=== PATIENT | male | born 1960 | race Caucasian/White ===

== ENCOUNTER 2023-02-10 02:42 | Emergency (ER) | payer MEDICAID, SELFPAY ==
[2023-02-10 02:43] VITALS: BP 150/88; PULSE 101; RESP 18; TEMP 37.1; O2SAT 97; BMI 30.6
[2023-02-10 03:06] LABS: Bacteria 0 SEEN /hpf (None Seen); Mucous, Urine 0 SEEN /hpf (<or=2+); Red Blood Cells-Urine 0 SEEN /hpf (0-5); Squamous Epithelial Cells - UA 0 SEEN /hpf (0-5); White Blood Cells 0 SEEN /hpf (0-5)
[2023-02-10 03:07] LABS: Color, Urine Yellow (Yellow); Glucose, Dipstick Normal (Normal); Ketone-Dipstick Negative (Negative); Leukocyte Esterase-Dipstick Negative /ul (Negative); Nitrite-Dipstick Negative (Negative); Occult Blood-Urine Negative /ul (Negative); Protein-Dipstick Negative (Negative); Urine Bilirubin Dipstick Negative (Negative); Urine Clarity Clear (Clear); Urine Urobilinogen Normal (Normal)
[2023-02-10 03:40] LABS: Anion Gap 3 (5-15); BUN 16 mg/dL (7-18); BUN/Creat Ratio 16.7 RATIO (10-20); Calcium,Total 8.2 mg/dL (8.5-10.1); Chloride 114 mmol/L (98-107); Creatinine, Serum 0.96 mg/dL (0.70-1.30); EST Glomerular Filtration Rate 85 mL/min (>60); Est Glom Filt Rate - Afr Amer 103 mL/min (>60); Estimated Creatinine Clearance 79.17 ml/min; Glucose 115 mg/dL (74-106); Potassium 3.9 mmol/L (3.5-5.1); Sodium Level 142 mmol/L (136-145)
[2023-02-10 03:47] LABS: PSA,Total- Diagnostic 1.26 ng/mL (0.0-4.0)
--- NOTE | 2023-02-10 04:16 | EDS_ITS ---
HPI History of Present Illness Chief Complaint: Complaint Informant: patient and spouse/S.O. Narrative Narrative: Patient is a 62-year-old male with past medical history of chronic back pain who states for the past 3 weeks he has sensation that he cannot empty his bladder fully. He states that there is no pain with urination but just the sensation that he frequently has to urinate. He states that he does not follow with a family doctor and he has not seen a urologist but as the symptoms were not spontaneously improving he presents for evaluation [facility] Home Medications NK 02/10/23 [History Last Taken Unknown] tamsulosin 0.4 mg capsule (Flomax) 0.4 mg PO DAILY #30 caps 02/10/23 [Rx Last Taken Unknown] Allergy/AdvReac Type Severity Reaction Status Date / Time No Known Allergies Allergy Verified 07/14/16 12:33 Surgical History (Updated 02/10/23 @ 02:46 by Shazia Dash) History of appendectomy Social History Smoking Status: Current every day smoker tobacco type: cigarettes ROS ROS ED Constitutional Constitutional ED: Denies chills or fever(s) ENT ENT ED: Denies sore throat Cardiovascular Cardiovascular: Denies chest pain Respiratory/Chest Respiratory/Chest: Denies cough or dyspnea Gastrointestinal Gastrointestinal: Denies abdominal pain, diarrhea, nausea or vomiting Genitourinary Genitourinary ED: Reports urinary frequency; Denies dysuria or hematuria Musculoskeletal Musculoskeletal: Denies back pain or myalgias Integumentary Denies rash Neurologic Neurologic: Denies headache(s) Hematologic/Lymphatic Hematologic/Lymphatic: Denies easy bleeding or easy bruising EXAM Physical Exam Const Vital Signs: 02/10/23 02:43 Temperature 98.8 F Temperature Source Temporal Pulse Rate 101 H Respiratory Rate 18 Blood Pressure 150/88 H Blood Pressure Mean 108 Pulse Ox 97 Oxygen Delivery Method Room Air Positive well nourished and well developed General Appearance ED: well developed HEENT HEENT Narrative: Normocephalic atraumatic Eyes PERRL and EOMs intact bilaterally General Eye ED: Negative for scleral icterus Neck supple Resp normal respiratory effort and clear to auscultation bilaterally Cardio regular rate and regular rhythm Rate: other Other Details: Radial and carotid pulses equal and symmetric GI normal to inspection, nondistended, normoactive bowel sounds, non-tender, non- distended and no masses GI Narrative: No organomegaly in the suprapubic region to suggest urinary retention. No voluntary guarding or rigidity. No pulsatile mass or fluid wave Auscultation: normoactive bowel sounds Palpation: soft Narrative: Normal circumcised male without blood or discharge from the urethral meatus and no urethral stricture noted. No testicular masses present. No soft tissue changes to suggest Brenda's gangrene. Back/Spine no CVA tenderness Extremity normal to inspection Neuro oriented x3 and CN's II-XII intact bilaterally Sensorium / Orientation: alert Psych mental status grossly normal Skin no rashes or lesions noted MDM MDM MDM Narrative Medical decision making narrative: Patient presented to the ER hypertensive otherwise with stable vitals. He reported sensation of frequent urination without dysuria that been present for 3 weeks. Differential diagnosis includes urinary retention versus BPH versus UTI versus kidney stone. Based on the patient having symptoms for 3 weeks with stable vitals chance for infection is less likely. A urine sample was obtained which shows no signs of infection in order to ensure there is no signs of acute kidney injury base metabolic profile was obtained revealing a normal creatinine. A bladder scan was performed and patient only had 156 mL of urine within his bladder going against acute obstruction. He was able to spontaneously urinate and postvoid residual was only 11 indicating he does empty his bladder nearly to completion. At this time he does not have UTI he does not have EULALIO he does not have signs of prostatitis as his PSA is normal. With his frequent urination I feel he does have BPH and will be started on Flomax and can follow with urology on an outpatient basis. History & Record Review Discussion w/independent historian: Patient and Significant other Lab Data Attestation: I reviewed the patient's lab results. Labs: Laboratory Results - last 24 hr 02/10/23 02/10/23 03:02 03:19 Sodium 142 Potassium 3.9 Chloride 114 H Carbon Dioxide 25.0 Anion Gap 3 L BUN 16 Creatinine 0.96 Estim Creat Clear Calc 79.17 Est GFR (MDRD) Af Amer 103 Est GFR (MDRD) Non-Af 85 BUN/Creatinine Ratio 16.7 Glucose 115 H Calcium 8.2 L Total PSA 1.26 Urine Color Yellow Urine Clarity Clear Urine pH 6.0 Ur Specific [place] 1.020 Urine Protein Negative Urine Glucose (UA) Normal Urine Ketones Negative Urine Occult Blood Negative Urine Nitrite Negative Urine Bilirubin Negative Urine Urobilinogen Normal Ur Leukocyte Esterase Negative Urine RBC 0 SEEN Urine WBC 0 SEEN Ur Squamous Epith Cells 0 SEEN Urine Bacteria 0 SEEN Urine Mucus 0 SEEN Discharge Plan Triage Chief Complaint: Complaint ED Provider: Latrell Sanchez Dx/Rx/DC Orders Clinical Impression: Benign prostatic hyperplasia with incomplete bladder emptying, Chronic back pain Instructions: ED BPH (Enlarged Prostate) Prescriptions: New tamsulosin [Flomax] 0.4 mg capsule 0.4 mg PO DAILY Qty: 30 2RF No Action NK Primary Care Provider: Care Physician,No Primary Referrals: Cade iRggs MD [Med Staff - Active Staff] - Care Physician,No Primary [Primary Care Provider] - Activity Restrictions/Additional Instructions: Please begin taking the Flomax as I feel your symptoms are related to an enlarged prostate. Also follow-up with urology for reevaluation of your symptoms and return to the ER should you have any further concerns Disposition Disposition: Home, Self Care Discharge Date/Time: 02/10/23 04:34
== END 2023-02-10 04:34 | disposition home or self-care (01) ==
PROVIDERS: Emergency Provider Emergency Medicine; Visit Provider Emergency Medicine
DX: F17.210 Nicotine dependence, cigarettes, uncomplicated (principal); N40.1 Benign prostatic hyperplasia with lower urinary tract symptoms; R35.0 Frequency of micturition; R33.9 Retention of urine, unspecified; M54.9 Dorsalgia, unspecified; G89.29 Other chronic pain
CPT/HCPCS: 51798; 36415; 80048; 81001; 84153; 99282